=== PATIENT | male | born 1960 | race Caucasian/White ===

== ENCOUNTER 2017-01-09 19:59 | Emergency (ER) | payer OTHER ==
[2017-01-09 20:09] VITALS: RESP 16
--- NOTE | 2017-01-09 20:17 | CPEKG ---
Heart Rate: 47 RR Interval: 1277 P-R Interval: 148 QRSD Interval: 116 QT Interval: 504 QTC Interval: 446 P [place]: 61 QRS [place]: 91 T Wave [place]: 71 EKG Severity - ABNORMAL ECG - EKG Impression: SINUS BRADYCARDIA EKG Impression: NONSPECIFIC INTRAVENTRICULAR CONDUCTION DELAY EKG Impression: BORDERLINE INFERIOR Q WAVES Electronically Signed By: Teresa Mcintyre 09-Jan-2017 22:04:02
[2017-01-09] MEDS ORDERED: ASPIRIN 81 MG CHEWABLE TAB ONE (20:28)
[2017-01-09] MEDS ORDERED: NS 500 ML IV ONE (20:33)
[2017-01-09] MEDS ORDERED: ASPIRIN 81 MG CHEWABLE TAB PO ONE ×2 (20:33)
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
[2017-01-09 20:39] LABS: % IMMATURE GRANULYOCYTES 0.2 % (0.0-1.1); ABSOLUTE IMMATURE GRANULOCYTES 0.01 10^3/uL (0.00-0.10); ADD DIFF? NO; ADD MORPH? NO; ADD SCAN? NO; ATYPICAL LYMPHOCYTE FLAG 20 (0-99); FRAGMENT RBC FLAG 0 (0-99); HEMATOCRIT 42.6 % (40.0-51.0); HEMOGLOBIN 14.8 g/dL (13.7-17.5); LEFT SHIFT FLG 0 (0-99); LIPEMIA HEMOLYSIS FLAG 90 (0-99); MEAN CELL HEMOGLOBIN 31.6 pg (27.9-34.1); MEAN CELL HEMOGLOBIN CONCENTR. 34.7 g/dL (32.4-36.7); MEAN PLATELET VOLUME 10.7 fL (8.7-11.7); PLATELET CLUMPS FLAG 10 (0-99); PLATELET COUNT 171 10^3/uL (150-400); RED BLOOD CELL COUNT 4.68 10^6/uL (4.40-6.38); RED CELL DISTRIBUTION WIDTH 13.4 % (11.5-15.2)
[2017-01-09 20:47] LABS: ANION GAP 11 mEq/L (8-16); CALCIUM 9.4 mg/dL (8.5-10.4); CARBON DIOXIDE 23 mEq/l (22-31); CHLORIDE 104 mEq/L (97-110); CREATININE 0.8 mg/dL (0.7-1.3); GLOMERULAR FILTRATION RATE > 60; GLUCOSE 80 mg/dL (70-100); SODIUM 138 mEq/L (134-144)
[2017-01-09 20:58] LABS: TROPONIN I < 0.012 ng/mL (0-0.034)
[2017-01-09 22:02] VITALS: BP 116/76; PULSE 53; TEMP 98.2; O2SAT 96
== END 2017-01-09 22:02 | disposition home or self-care (01) ==
DX: R00.2 Palpitations (principal); R07.9 Chest pain, unspecified

== ENCOUNTER → 2017-01-19 | Outpatient (CLI) | payer OTHER ==
[~2017-01-19] MED LIST: IOPAMIDOL (ISOVUE 370) 100 ML BTL IV ONE; NITROGLYCERIN 0.4 MG BTL SL ONE
== END ==
LOC: FIMAGING 11:18
PROVIDERS: ATTEND Internal Medicine Cardiovascular Disease
DX: I47.1 Supraventricular tachycardia (principal)
CPT/HCPCS: Q9967

== ENCOUNTER 2017-02-14 21:28 | Observation (INO) | payer OTHER ==
--- NOTE | 2017-02-14 21:36 | EDPHY ---
HPI/HX/ROS/PE/MDM Narrative: CHIEF COMPLAINT: Chest pain, dyspnea HPI: This patient is a 56 year old male status two weeks post right knee surgery performed by Dr. Raphael Luong who presents to the Emergency Department complaining of left-sided chest pain beginning this morning and remaining persistent over time. He describes his pain as a constriction to his chest with pain radiating to his left shoulder. His pain is pleuritic in nature and exacerbated when lying down or resting. He took two doses of diazepam without improvement to his pain. He has no additional complaints apart from residual mild pain to his surgical site. He denies heart palpitations, fever or chills, nausea, diaphoresis, or cough. He takes a baby aspirin daily but no additional anticoagulant use. REVIEW OF SYSTEMS: Aside from elements discussed in the HPI, a comprehensive 10-point review of systems was reviewed and is negative. PMH: Exercise-induced atrial tachycardia. SOCIAL HISTORY: at bedside. Works as an author. PHYSICAL EXAM: General:Patient is alert, in no acute distress. ENT:Eyes are normal to inspection. ENT inspection normal. Neck: Normal inspection. Full range of motion. Respiratory:No respiratory distress. Breath sounds normal bilaterally. Cardiovascular: Regular rate and rhythm. Strong peripheral pulses. Normal cap refill. Abdomen:The abdomen is nontender to palpation. There are no peritoneal signs. There are normal bowel sounds. Back: Normal to inspection. No tenderness to palpation. Skin: Normal color. No rash. Warm and dry. Extremities: Appropriately healing surgical wound to the anterior aspect of the right knee. Full range of motion. Neuro: Oriented x3. Normal motor function. Normal sensory function. ED Course: This 56-year-old male presents with complaint of pleuritic chest pain beginning today, two weeks following right knee surgery performed by Dr. Luong. His wound is healing appropriately without any signs of infection. He denies fever and is afebrile at time of presentation. Will proceed with EKG, labs, and CTA of the chest. The patient expresses agreement to this treatment plan. EKG was ordered and interpreted by myself. Please see [employer] system for official reading. 10:50pm: CTA results reported to me by the radiologist are positive for PE. I discussed these results with the patient as well as plan for admission. The patient expresses agreement to this. 11:00pm: Consultation with Dr. Cam, hospitalist, who accepts admission. MDM: This patient presents with classic signs and symptoms of a PE, which is unfortunately confirmed by CTA. I see no signs of ACS, PNA, TAD, PTX or sepsis. The patient requires admission for stabilization and initiation of anticoagulation. - Data Points Imaging Results: Imaging Impressions Chest X-Ray 02/14/17 21:48 Impression: 1. Peripheral right lower lobe consolidation, which could be related to atelectasis, infarct, or less likely pneumonia. 2. Probable mild fluid overload with interstitial prominence and trace bilateral effusions. Imaging: Discussed imaging studies w/ financial reporting advisor Radiologist Laboratory Results: Laboratory Results 02/14/17 21:40 02/14/17 21:40 02/14/17 02/14/17 21:40 21:40 WBC 7.84 10^3/uL 10^3/uL (3.80-9.50) RBC 4.47 10^6/uL 10^6/uL (4.40-6.38) Hgb 14.2 g/dL g/dL (13.7-17.5) Hct 42.1 % % (40.0-51.0) MCV 94.2 fL fL (81.5-99.8) MCH 31.8 pg pg (27.9-34.1) MCHC 33.7 g/dL g/dL (32.4-36.7) RDW 13.5 % % (11.5-15.2) Plt Count 140 10^3/uL L 10^3/uL (150-400) MPV 11.3 fL fL (8.7-11.7) Neut % (Auto) 68.0 % % (39.3-74.2) Lymph % (Auto) 20.2 % % (15.0-45.0) [place] % (Auto) 9.9 % % (4.5-13.0) Eos % (Auto) 1.4 % % (0.6-7.6) Baso % (Auto) 0.4 % % (0.3-1.7) Nucleat RBC Rel Count 0.0 % % (0.0-0.2) Absolute Neuts (auto) 5.33 10^3/uL 10^3/uL (1.70-6.50) Absolute Lymphs (auto) 1.58 10^3/uL 10^3/uL (1.00-3.00) Absolute Monos (auto) 0.78 10^3/uL 10^3/uL (0.30-0.80) Absolute Eos (auto) 0.11 10^3/uL 10^3/uL (0.03-0.40) Absolute Basos (auto) 0.03 10^3/uL 10^3/uL (0.02-0.10) Absolute Nucleated RBC 0.00 10^3/uL 10^3/uL (0-0.01) Immature Gran % 0.1 % % (0.0-1.1) Immature Gran # 0.01 10^3/uL 10^3/uL (0.00-0.10) Sodium 136 mEq/L mEq/L (134-144) Potassium 3.7 mEq/L mEq/L (3.5-5.2) Chloride 101 mEq/L mEq/L (97-110) Carbon Dioxide 25 mEq/l mEq/l (22-31) Anion Gap 10 mEq/L mEq/L (8-16) BUN 17 mg/dL mg/dL (7-23) Creatinine 1.0 mg/dL mg/dL (0.7-1.3) Estimated GFR > 60 Glucose 110 mg/dL H mg/dL (70-100) Calcium 9.3 mg/dL mg/dL (8.5-10.4) Troponin I < 0.012 ng/mL ng/mL (0-0.034) General Time Seen by Provider: 02/14/17 21:35 Initial Vital Signs: Initial Vital Signs Temperature (C) 36.7 C 02/14/17 21:32 Heart Rate 69 02/14/17 21:32 Respiratory Rate 16 02/14/17 21:32 Blood Pressure 124/71 H 02/14/17 21:32 O2 Sat (%) 96 02/14/17 21:32 O2 Delivery Mode Room Air O2 (L/minute) 2 Allergies/Adverse Reactions: ampicillin Allergy (Verified 02/14/17 21:31) mirtazapine Allergy (Verified 02/14/17 21:31) Penicillins Allergy (Verified 01/09/17 20:09) Home Medications: Medication Instructions Recorded Herbals/Supplements -Info Only 1 each PO AD 04/19/13 Aspirin [Aspirin 81mg (*)] 81 mg PO DAILY 02/15/17 Doxycycline Hyclate [Vibramycin 100 mg PO BID 02/15/17 100 MG (*)] Departure - Departure Disposition: [facility] Inpatient Acute Clinical Impression: Pulmonary embolism Qualifiers: Pulmonary embolism type: saddle Chronicity: acute Acute cor pulmonale presence : without acute cor pulmonale Qualified Code(s): I26.92 - Saddle embolus of pulmonary artery without acute cor pulmonale Condition: Fair
--- NOTE | 2017-02-14 21:44 | CPEKG ---
Heart Rate: 69 RR Interval: 870 P-R Interval: 136 QRSD Interval: 106 QT Interval: 408 QTC Interval: 437 P [place]: 23 QRS [place]: 85 T Wave [place]: -5 EKG Severity - ABNORMAL ECG - EKG Impression: SINUS RHYTHM EKG Impression: PROBABLE LEFT VENTRICULAR HYPERTROPHY EKG Impression: CONSIDER INFERIOR INFARCT EKG Impression: COMPARED WITH 09 JANUARY 2017, HR FASTER Electronically Signed By: Mercedes Monge 17-Feb-2017 14:05:39
[2017-02-14 21:53] LABS: % IMMATURE GRANULYOCYTES 0.1 % (0.0-1.1); ABSOLUTE IMMATURE GRANULOCYTES 0.01 10^3/uL (0.00-0.10); ADD DIFF? NO; ADD MORPH? NO; ADD SCAN? NO; ATYPICAL LYMPHOCYTE FLAG 10 (0-99); FRAGMENT RBC FLAG 0 (0-99); HEMATOCRIT 42.1 % (40.0-51.0); HEMOGLOBIN 14.2 g/dL (13.7-17.5); LEFT SHIFT FLG 0 (0-99); LIPEMIA HEMOLYSIS FLAG 80 (0-99); MEAN CELL HEMOGLOBIN 31.8 pg (27.9-34.1); MEAN CELL HEMOGLOBIN CONCENTR. 33.7 g/dL (32.4-36.7); MEAN CELL VOLUME 94.2 fL (81.5-99.8); MEAN PLATELET VOLUME 11.3 fL (8.7-11.7); PLATELET CLUMPS FLAG 20 (0-99); PLATELET COUNT 140 10^3/uL (150-400); RED BLOOD CELL COUNT 4.47 10^6/uL (4.40-6.38); RED CELL DISTRIBUTION WIDTH 13.5 % (11.5-15.2)
[2017-02-14 22:22] LABS: ANION GAP 10 mEq/L (8-16); CALCIUM 9.3 mg/dL (8.5-10.4); CARBON DIOXIDE 25 mEq/l (22-31); CHLORIDE 101 mEq/L (97-110); GLOMERULAR FILTRATION RATE > 60; GLUCOSE 110 mg/dL (70-100); POTASSIUM 3.7 mEq/L (3.5-5.2); SODIUM 136 mEq/L (134-144)
[2017-02-14] MEDS ORDERED: IOPAMIDOL (ISOVUE 370) 100 ML BTL IV ONE (22:27)
[2017-02-14 22:55] LABS: TROPONIN I < 0.012 ng/mL (0-0.034)
[2017-02-14] MEDS ORDERED: ENOXAPARIN 80 MG/0.8 ML SYR SC ONE (23:11)
[2017-02-14] MEDS ORDERED: ONDANSETRON DISINTEGRATING 4 MG TAB PO PRN (23:18)
[2017-02-14] MEDS ORDERED: ONDANSETRON 4 MG/2 ML VIAL IVP PRN (23:18)
[2017-02-14] MEDS ORDERED: HYDROmorphONE/DILAUDID 1 MG/ML SYR IVP PRN (23:18)
[2017-02-15] MEDS ORDERED: ACETAMINOPHEN 325 MG TAB ONE (00:25)
[2017-02-15] MEDS: ACETAMINOPHEN 325 MG TAB PO PRN ×2 (00:30→12:01)
[2017-02-15] MEDS ORDERED: oxyCODONE IR 5 MG TAB ONE (00:59)
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
[2017-02-15] MEDS: oxyCODONE IR 5 MG TAB PO PRN ×2 (01:15→03:55)
[2017-02-15] MEDS ORDERED: ENOXAPARIN 80 MG/0.8 ML SYR SC SCH ×2 (09:00→11:00)
[2017-02-15] MEDS ORDERED: DOXYCYCLINE HYCLATE 100 MG CAP/TAB PO SCH (09:00)
[2017-02-15 10:17] LABS: INR 1.1 (0.83-1.16); PROTIME(PATIENT) 14.1 SEC (12.0-15.0)
--- NOTE | 2017-02-15 15:56 | ECHO ---
[id number] + + [address] : : [place] [address] : : [phone] + + Adult Echocardiographic Report + -----+ :Name: SHARON CANOD JStudy Date: 02/15/2017 08:16 AM : : Hospital Admission Number: [id number] Location : 200: :: 1960 Gender: Male Height: 76 in : :Age: 56 yrs Race: WH,White Weight: 175 lb : :Reason For Study: Bilateral PE/eval for right heart strain : : BSA: 2.1 meters2 : + -----+ Doppler Measurements \T\ Calculations MV E max ronald: 58.7 cm/sec Ao V2 max: 105.9 cm/sec TR max ronald: 248.4 cm/sec MV A max ronald: 33.6 cm/sec Ao max P.5 mmHg TR max P.7 mmHg MV E/A: 1.7 RAP systole: 5.0 mmHg RVSP(TR): 29.7 mmHg Left Ventricle The left ventricle is normal in size. Left ventricular systolic function is normal. Right Ventricle A moderator band is seen in the right ventricle. The right ventricle is mildly dilated. The right ventricular systolic function is mildly reduced. Atria The left atrial size is normal. The right atrium is mildly dilated. Mitral Valve The mitral valve is normal. There is trace mitral regurgitation. Tricuspid Valve Normal tricuspid valve. There is trace tricuspid regurgitation. Pulmonic Valve The pulmonic valve is not well visualized. Great Vessels The aortic root is normal size. Conclusion A two-dimensional transthoracic echocardiogram, with color flow Doppler was performed. Limited views available for visualization - echo performed with patient flat (extreme pain when on L side). 1. This is a limited echocardiogram to evaluate RV function. 2. The left ventricle is normal in size. Left ventricular systolic function is normal. 3. The right ventricle is mildly dilated. The right ventricular systolic function is mildly reduced. 4. The pulmonary artery pressure could not be adequately estimated. 5. When compared to the 04/20/13 study. The RV findings are new. Final Reading Physician: Rajat Pretty MD electronically signed on 02/15/2017 03:54 PM Ordering Physician: Lynnette Cam Performed By: Sonya Dean RDCS
[2017-02-15 16:51] VITALS: BP 104/65; PULSE 63; RESP 16; TEMP 98.1; O2SAT 93
--- NOTE | 2017-02-15 18:16 | PDDCSUM ---
Discharge Summary Discharge Summary: DISCHARGE DIAGNOSES: -ACUTE PULMONARY EMBOLISM WITHOUT EVIDENCE OF INFARCTION OR HEMODYNAMIC INSTABILITY -ONGOING TREATMENT FOR INFECTION AT PREPATELLAR [place] OF THE RIGHT LEG AFTER RECENT SURGERY CONSULTANTS: DR. AXEL LUONG OF ORTHOPEDICS PROCEDURES: CT ANGIOGRAM OF CHEST SHOWING PULMONARY EMBOLI HOSPITAL COURSE SUMMARY: This patient recently had a knee surgery which complicated by prepatellar bursitis which has been managed with drainages and antibiotics by Dr. Luong. He also is having some back spasms 2 days ago. For these reasons he was poorly mobile and had some swelling in his right leg. An ultrasound of the leg previously had not shown DVT. However on the day before admission the patient had an increase in swelling that then decreased. Yesterday he had onset of severe chest pain and came to the hospital and was found to have pulmonary embolism. His blood pressure and pulse respiratory rate oxygenation have been essentially normal throughout his stay here. On echocardiogram he had poor visualization of the right ventricle and pulmonary pressures were not able to be estimated. There was felt to possibly be mild decreased function of the right ventricle. Otherwise echo unremarkable. There is no evidence of DVT on ultrasound of the legs. The patient was admitted the hospital and treated with Lovenox injections which he tolerated well. His symptoms of pain and dyspnea resolved to the point of being almost gone overnight. He is up ambulating the hallway on room air without hypoxemia or shortness of breath. At this point he is felt stable for discharge to home. He will be treated at home with Eliquis 5 mg tablets 2 tablets twice daily for week followed by 1 tablet twice daily. The plan is for total of 3 months of therapy unless clinical changes indicate otherwise. He will follow up with Dr. Jace Trevizo and Humza Early in the [facility]. I have discussed with the patient and his at the bedside warning symptoms regarding any recurrent embolic events or other complications and when to seek urgent attention. Also we reviewed the risks of bleeding, as well as the need to avoid activities that increase risk of injury bleeding. He will continue his doxycycline for his leg infection. He will discontinue his daily aspirin until off the Coumadin and he is warned not to use other nonsteroidal anti-inflammatories. PENDING TEST RESULTS: None MEDICATION CHANGES: Stop aspirin and avoid nonsteroidal anti-inflammatories Eliquis 10 mg twice daily for 1 week followed by 5 mg twice daily FOLLOW-UP PLAN: In pulmonology Clinic with josie Fink Greater than 35 minutes bedside and care coordination time today
== END 2017-02-15 17:35 | disposition home or self-care (01) ==
LOC: F2W 02-15 00:37
PROVIDERS: ADMIT Hospitalist; ATTEND Internal Medicine
DX: I26.99 Other pulmonary embolism without acute cor pulmonale (principal); M71.161 Other infective bursitis, right knee; M62.830 Muscle spasm of back; B95.7 Other staphylococcus as the cause of diseases classified elsewhere; Z88.0 Allergy status to penicillin
CPT/HCPCS: 71020; 71275; 93005; 93306; 93970; 99285; G0378; J1170; J1650; Q9967

== ENCOUNTER 2017-05-31 10:16 | Day surgery (SDC) | payer OTHER ==
[2017-05-31] MEDS ORDERED: LIDOCAINE 1% 300 MG/30 ML SDV ONE (11:35)
--- NOTE | 2017-05-31 11:41 | PDGENHP ---
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 cta. a o x 3 Cardiorespiratory Assessment: LINQ monitor being placed to document palpitations
[2017-05-31] MEDS ORDERED: LIDOCAINE 1% 300 MG/30 ML SDV SC ONE (11:51)
--- NOTE | 2017-05-31 22:48 | EPPROC ---
Electrophysiology Procedure Note: Consent obtained, IV access obtained. Local anesthetic injected in 4th left intercostal space. LINQ device placed using sterile precautions using standard technique. Wound closed with 2 barby. No complications. [employer] LINQ SN RLA [id number] Patient Problems: Problems Problem Status Onset Pulmonary embolism Acute
== END 2017-05-31 13:00 | disposition home or self-care (01) ==
LOC: FCATH 10:16
PROVIDERS: ATTEND Internal Medicine Cardiovascular Disease
PROC: 0JH602Z Insertion of Monitoring Device into Chest Subcutaneous Tissue and Fascia, Open Approach (ICD-10-PCS; principal; 2017-05-31)
DX: R00.2 Palpitations (principal); Z86.711 Personal history of pulmonary embolism
CPT/HCPCS: C1764

== ENCOUNTER 2017-10-24 07:12 | Day surgery (SDC) | payer OTHER ==
[2017-10-24] MEDS ORDERED: NS 1,000 ML IV ONE (07:15)
--- NOTE | 2017-10-24 07:35 | CPEKG ---
Heart Rate: 52 RR Interval: 1154 P-R Interval: 136 QRSD Interval: 112 QT Interval: 504 QTC Interval: 469 P [place]: 60 QRS [place]: 89 T Wave [place]: 75 EKG Severity - ABNORMAL ECG - EKG Impression: SINUS RHYTHM EKG Impression: NONSPECIFIC INTRAVENTRICULAR CONDUCTION DELAY EKG Impression: BORDERLINE INFERIOR Q WAVES Electronically Signed By: Isaak Chavira 24-Oct-2017 08:40:37
[2017-10-24] MEDS ORDERED: HEPARIN 10,000 UNIT/10 ML MDV (1,000 UNIT/ML) ONE (07:51)
[2017-10-24] MEDS ORDERED: BUPIVACAINE 0.5% 30 ML SDV ONE (07:51)
[2017-10-24] MEDS ORDERED: LIDOCAINE 1% 300 MG/30 ML SDV ONE (07:51)
[2017-10-24] MEDS ORDERED: ISOPROTERENOL HCL/D5W 0.2 MG/50 ML BAG IV ONE ×2 (07:52→10:20)
[2017-10-24 07:54] LABS: PLATELET COUNT 180 10^3/uL (150-400)
[2017-10-24 08:09] LABS: INR 1.1 (0.83-1.16); PROTIME(PATIENT) 14.4 SEC (12.0-15.0)
--- NOTE | 2017-10-24 08:42 | PDGENHP ---
History & Physical Chief Complaint: symptomatic svt History of Present Illness: palpitations, linq shows svt Relevant Physical Exam: [id number] cta [id number] Cardiorespiratory Assessment: svt, likely AT cl 340-380 ms, for eps poss ablation
--- NOTE | 2017-10-24 08:48 | PDPROPOC ---
Sedation Plan of Care Sedation Plan of Care: vital signs stable, mental status noted, patient educated of risks, benefits, alternatives, patient can tolerate sedation ASA Classification: ASA 1 Planned drugs: fentanyl, midazolam Mallampati Score: Class 1 Mallampati Reference Image: Patient passed 3-3-2 rule?: Yes
[2017-10-24] MEDS ORDERED: ATROPINE SULFATE 1 MG/10 ML SYR ONE (10:43)
[2017-10-24] MEDS ORDERED: ISOPROTERENOL HCL 0.2 MG/ML 5ML AMP ONE (10:44)
--- NOTE | 2017-10-24 11:40 | EPPROC ---
Electrophysiology Procedure Note: DIAGNOSTIC ELECTROPHYSIOLOGIC STUDY Procedures performed: 1. Fluoroscopy 2. EP evaluation with RA/RV/LA pace/record, with arrhythmia induction 3. EP evaluation with RA/RV pace record, insert/reposition catheter, with arrhythmia induction 4. [id number] Programmed stimulation + pacing after IV drug 5. 3D mapping INDICATION: Atrial tachycardia, CL 340-380 ms seen on LINQ monitoring. PROCEDURE: Catheters & Anesthesia: The patient arrived in the Electrophysiology Laboratory in the fasting state. The right clavicular region, right groin, & left groin area were prepped & draped in the usual sterile manner. Procedure was done with patient fully awake. Appropriate non-invasive blood pressure, pulse oximetry & end-tidal CO2 monitoring was established. All catheters were placed percutaneously using the modified Seldinger technique , and advanced into position under fluoroscopic guidance. One #6 [place] hexapolar non-deflectable electrode catheter was inserted into the right atrial appendage via the left femoral vein (2mm spacing; except the proximal ring which was 25cm from the tip used for unipolar recordings). One #7 [place] deflectable octapolar electrode catheter was advanced to the His-bundle position via the left femoral vein (2mm spacing), this was later removed. One # 7 [place] deflectable catheter with 10 pairs of electrodes was placed via the left femoral vein into the coronary sinus. Programmed stimulation was performed from the right atrium, right ventricle and coronary sinus (left atrium). Parahisian pacing demonstrated constant H-A interval with changing V-A intervals and stimulus-A intervals during capture and loss of capture of proximal RBB proving retrograde conduction over AV node. There was no antegrade accessory pathway conduction. There was no antegrade slow AV [place] pathway conduction. Heparin was administered to keep ACT more than 200 seconds. No sustained tachycardia was induced during programmed stimulation at baseline or during graded doses of isoproterenol up to 40 mcg/min. Atropine 1 mg IV was also administered. SR 0 sheath was inserted in the right femoral vein, PentaRay catheter was advanced into the right atrium and a detailed anatomical map of the SVC, IVC, right atrium and coronary sinus was obtained. Up to 5 beats of atrial tachycardia, cycle length 340-360 milliseconds were seen, mapping was done with PentaRay catheter, early activation was seen in the high right atrium along its posterior aspect. However episodes of atrial tachycardia quickly degenerated to brief episodes of atrial fibrillation that lasted for 5-10 seconds. Therefore detailed mapping could not be performed. No ablation was performed. The catheters were removed. The patient was transferred to the cardiovascular holding area in stable condition. Vascular access sheaths were removed in the EP lab after pursestring suture was placed. There were no apparent complications. CONCLUSIONS 1. Normal sinus and AV node function. 2. No evidence of accessory AV pathway presence. No evidence of slow AV [place] pathway. 3. No sustained arrhythmias induced. 4. Nonsustained atrial tachycardia noted. This quickly degenerated to nonsustained atrial fibrillation. Therefore ablation could not be performed. 5. No apparent complications. Patient Problems: Problems Problem Status Onset Supraventricular tachycardia Acute Pulmonary embolism Acute
--- NOTE | 2017-10-24 12:04 | CPEKG ---
Heart Rate: 69 RR Interval: 870 P-R Interval: 152 QRSD Interval: 108 QT Interval: 460 QTC Interval: 493 P [place]: 48 QRS [place]: 86 T Wave [place]: 49 EKG Severity - BORDERLINE ECG - EKG Impression: SINUS RHYTHM EKG Impression: BORDERLINE INFERIOR Q WAVES EKG Impression: BORDERLINE PROLONGED QT INTERVAL Electronically Signed By: Isaak Chavira 24-Oct-2017 12:46:41
[2017-10-25] MEDS ORDERED: ASPIRIN 81 MG CHEWABLE TAB PO SCH (09:00)
== END 2017-10-24 16:16 | disposition home or self-care (01) ==
LOC: FCATH 07:12
PROVIDERS: ATTEND Internal Medicine Cardiovascular Disease
PROC: 02K83ZZ Map Conduction Mechanism, Percutaneous Approach (ICD-10-PCS; principal; 2017-10-24)
PROC: 5A1213Z Performance of Cardiac Pacing, Intermittent (ICD-10-PCS; principal; 2017-10-24)
PROC: 4A023FZ Measurement of Cardiac Rhythm, Percutaneous Approach (ICD-10-PCS; principal; 2017-10-24)
DX: I47.1 Supraventricular tachycardia (principal)
CPT/HCPCS: 93005; 93613; 93620; 93621; 93623; C1730; C1731; C1732; J0461; J1644